=== PATIENT | male | born 1985 ===

== ENCOUNTER 2019-04-04 21:03 | Emergency (ER) | payer OTHER ==
--- NOTE | 2019-04-04 21:22 | ED ---
Substance Abuse/Use - HPI Summary HPI Summary: The patient is a 33 y/o M arriving by ambulance to [facility] with a chief complaint of heroin use relapse today. He was sent here by Ching Shelton NP, to be evaluated for potential overdose. He reports that he did not take a lot, and he administered it orally. He additionally c/o diaphoresis. He also has pain in the left hand with movement of thumb, which is aching pain rated 7/10 in severity. He denies fever, chills, erythema of eyes, sore throat, CP, SOB, cough , abdominal pain, N/V, dysuria, hematuria, edema, rash, or dizziness. Former smoker, rare EtOH, heroin use. - History Of Current Complaint Stated Complaint: DRUG USE PER EMS Time Seen by Provider: 04/04/19 21:11 Hx Obtained From: Patient Onset/Duration of Drug/ETOH Abuse: Minutes Ingestion History: Type/Name Of Drug - heroin, Amount Ingested - "not a lot" Overdose Characteristics: Oral Severity Initially: Moderate Severity Currently: Moderate Character: Other - diaphoretic Aggravating Factor(s): Nothing Alleviating Factor(s): Nothing Associated Signs And Symptoms: Other: - POSITIVE: diaphoresis, pain in left hand at thumb with movement; NEGATIVE: fever, chills, erythema of eyes, sore throat, CP, SOB, cough, abdominal pain, N/V, dysuria, hematuria, edema, rash, or dizziness - Allergies/Home Medications Allergies/Adverse Reactions: Allergies Allergy/AdvReac Type Severity Reaction Status Date / Time No Known Allergies Allergy Verified 04/04/19 21:19 PMH/Surg Hx/FS Hx/Imm Hx Endocrine/Hematology History: Denies: Hx Diabetes Cardiovascular History: Denies: Hx Hypertension Psychiatric History: Reports: Hx Substance Abuse - heroin - Surgical History Surgical History: None Surgery Procedure, Year, and Place: hernia surgery 1996 Infectious Disease History: Yes Infectious Disease History: Reports: Hx of Known/Suspected MRSA Denies: Hx Known/Suspected VRE - Family History Known Family History: Negative: Cardiac Disease, Hypertension - Social History Alcohol Use: Rare Hx Substance Use: Yes Substance Use Type: Reports: Heroin Substance Use Comment - Amount & Last Used: today Hx Tobacco Use: Yes Smoking Status (MU): Former Smoker Review of Systems Positive: Skin Diaphoresis. Negative: Fever, Chills Negative: Erythema Negative: Ear Ache Negative: Chest Pain Negative: Shortness Of Breath, Cough Negative: Abdominal Pain, Vomiting, Nausea Negative: dysuria, hematuria Positive: Myalgia - pain in the left hand with movement of thumb. Negative: Edema Negative: Rash Neurological: Other - NEGATIVE: dizziness All Other Systems Reviewed And Are Negative: Yes Physical Exam - Summary Physical Exam Summary: Constitutional: Well-developed, Well-nourished, Alert. (-) Distressed Skin: Warm, Dry HENT: Normocephalic; Atraumatic Eyes: Conjunctiva normal Neck: Musculoskeletal ROM normal neck. (-) JVD, (-) Stridor, (-) Tracheal deviation Cardio: Rhythm regular, rate normal, Heart sounds normal; Intact distal pulses; The pedal pulses are 2+ and symmetric. Radial pulses are 2+ and symmetric. (-) Murmur Pulmonary/Chest wall: Effort normal. (-) Respiratory distress, (-) Wheezes, (-) Rales Abd: Soft, (-) tenderness, (-) Distension, (-) Guarding, (-) Rebound Musculoskeletal: Proximal phalanx of the left thumb has mild tenderness to palpation, FROM, no swelling, no snuffbox tenderness, (-) Edema Lymph: (-) Cervical adenopathy Neuro: Alert, Oriented x3 Psych: Mood and affect Normal Triage Information Reviewed: Yes Vital Signs Reviewed: Yes Diagnostics - Laboratory Lab Statement: Any lab studies that have been ordered have been reviewed, and results considered in the medical decision making process. - Radiology L Thumb XR Radiology Interpretation Completed By: Radiologist Summary of Radiographic Findings: No evidence for fracture. ED physician has reviewed this report. - EKG 2114 Cardiac Rate: NL - 85 BPM EKG Rhythm: Sinus Rhythm Summary of EKG Findings: NSR of 85 BPM, No STEMI Re-Evaluation - Re-Evaluation First Eval Re-Evaluation Time: 21:40 Comment: I discussed findings and discharge with the patient. Course/Dx - Course Course Of Treatment: The patient is a 33 y/o M arriving by ambulance to [facility] with a chief complaint of heroin use relapse today. He was sent here by Ching Shelton NP, to be evaluated for potential overdose. He reports that he did not take a lot, and he administered it orally. He additionally c/o diaphoresis. He also has pain in the left hand with movement of thumb. He denies fever, chills, erythema of eyes, sore throat, CP, SOB, cough, abdominal pain, N/V, dysuria, hematuria, edema, rash, or dizziness. Upon physical exam, the patient exhibits tenderness to palpation in the proximal phalanx of the left thumb with FROM, no swelling, no snuffbox tenderness. There was no significant effect with the heroin due to his opiate antagonist usage as prescribed. There is currently no significant clinical toxidrome currently. L Thumb XR is negative for fracture. Patient is diagnosed with heroin abuse and thumb sprain. He will follow up with Verónica Shelton at [facility] tomorrow. He agrees with this plan. - Diagnoses Provider Diagnoses: Heroin abuse, Strain of left thumb Discharge - Sign-Out/Discharge Documenting (check all that apply): Patient Departure - Patient will be discharged home. Patient Received Moderate/Deep Sedation with Procedure: No - Discharge Plan Condition: Stable Disposition: HOME Patient Education Materials: Finger Sprain (ED), Opioid Safety (ED) Referrals: Verónica Shelton, [facility] [Nurse Practitioner] - 1 Day Additional Instructions: Follow up with Verónica Shelton at [facility] tomorrow. RETURN TO THE EMERGENCY DEPARTMENT FOR ANY NEW OR WORSENING SYMPTOMS. - Billing Disposition and Condition Condition: STABLE Disposition: Home - Attestation Statements Document Initiated by Maggiee: Yes Documenting Scribe: Mayela Esquivel Provider For Whom Christiano is Documenting (Include Credential): Dr. Kaushal Rogers MD Scribe Attestation: Mayela Allan scribed for Dr. Kaushal Rogers MD on 04/05/19 at 0002. Status of Scribe Document: Ready
[2019-04-04 21:56] VITALS: BP 115/87
== END 2019-04-04 21:55 | disposition home or self-care (01) ==
LOC: ED 21:03
DX: F11.10 Opioid abuse, uncomplicated (principal); S66.412A Strain of intrinsic muscle, fascia and tendon of left thumb at wrist and hand level, initial encounter; X58.XXXA Exposure to other specified factors, initial encounter; Z87.891 Personal history of nicotine dependence
CPT/HCPCS: 99282